=== PATIENT | male | born 1980 | race Caucasian/White ===

== ENCOUNTER 2021-08-10 00:40 | Inpatient (IN) | payer OTHER, SELFPAY ==
[~2021-08-10] VITALS: Ht 190.5 cm; Wt 108.0 kg
[2021-08-10 00:45] VITALS: BP 116/74
--- NOTE | 2021-08-10 00:55 | NUR ---
Dr. Tyson examining patient.
--- NOTE | 2021-08-10 00:56 | NUR ---
41 YO/M BIB SELF W C/O BL LEG AND SCROTUM SWELLING X1 WEEK W BLISTER/ULCER TO SIDE OF L FOOT, L LEG, AND RASH IN SCROTUM AREA FROM SCROTUM RUBBING AGAINST LEG. PT DENIES ANY PAIN BUT REPORTS DISCOMFORT TO LEGS. PT REPORTS ULCER/BLISTERS WERE PRESENT IN MAY WAS SEEN AT [facility] DISCHARGED W ABX BUT FEELS LIKE ULCERS ARE WORSENING. PT DENIES CHEST PAIN, FEVER, CHILLS, N/V/D. PT AMBULATORY W STEADY GAIT W USE OF CANE. PT LAYING IN BED, CONNECTED TO MONITOR W VSS. PT IN GOWN. ERMD AT BEDSIDE ASSESSING PT. PMH:DIABETES ALLERGIES: SULFA
[2021-08-10] MEDS ORDERED: VANCOMYCIN 1,000 MG in DEXTROSE 5% 250 ML IV ONE (01:00)
[2021-08-10] MEDS ORDERED: FUROSEMIDE 40 MG/4 ML VIAL IVP ONE (01:00)
[2021-08-10] MEDS ORDERED: KETOROLAC 30 MG/ML VIAL IVP ONE (01:00)
--- NOTE | 2021-08-10 01:00 | NUR ---
pt unable to provide urine at this tume. pt provided w water.
[2021-08-10] MEDS ORDERED: cefTRIAXone 1,000 MG VIAL ONE (01:07)
--- NOTE | 2021-08-10 01:25 | NUR ---
pt refused pain medication at this time.
--- NOTE | 2021-08-10 01:26 | NUR ---
X-Ray at bedside.
[2021-08-10 01:30] LABS: BASOPHILS # (AUTO) 0.1 K/uL (0.00-0.22); EOSINOPHILS # (AUTO) 0.1 K/uL (0-0.4); EOSINOPHILS % (AUTO) 0.7 % (0.0-4.0); HEMATOCRIT 38.3 % (36-52); HEMOGLOBIN 12.8 g/dL (12.0-18.0); LYMPHOCYTES # (AUTO) 1.5 K/uL (2.0-11.5); LYMPHOCYTES % (AUTO) 14.7 % (20.5-51.1); MEAN CORPUSCULAR HEMOGLOBIN 28 pg (27-31); MEAN CORPUSCULAR HGB CONC 33 g/dL (33-37); MEAN CORPUSCULAR VOLUME 85.1 fL (80-94); MONOCYTES # (AUTO) 0.5 K/uL (0.8-1.0); MONOCYTES % (AUTO) 4.7 % (1.7-9.3); NEUTROPHILS # (AUTO) 8.1 K/uL (1.8-7.7); NEUTROPHILS % (AUTO) 78.9 % (42.2-75.2); PLATELET COUNT (AUTO) 317 K/uL (140-450); RED CELL DISTRIBUTION WIDTH 14.5 % (11.6-13.7); WHITE BLOOD COUNT (AUTO) 10.2 K/uL (4.8-10.8)
--- NOTE | 2021-08-10 01:30 | NUR ---
spfia sample collected from pt nares and sent to lab.
--- NOTE | 2021-08-10 01:33 | NUR ---
Ultrasound at bedside.
--- NOTE | 2021-08-10 01:33 | NUR ---
PT AMBULATED TO BATHROOM W STEADY GAIT. Addendum: 08/10/21 at 0156 by [employer] USE OF CANE TO AMBULATE.
[2021-08-10] MEDS ORDERED: VANCOMYCIN 1,000 MG VIAL ONE (01:43)
[2021-08-10 01:45] LABS: ANION GAP 11.6 (8-16); CARBON DIOXIDE 30.9 mmol/L (21-32); CREATININE 0.8 mg/dL (0.6-1.3); POTASSIUM 3.5 mmol/L (3.5-5.1); TOTAL BILIRUBIN 0.9 mg/dL (0.0-1.0)
[2021-08-10 02:32] LABS: APPEARANCE,URINE CLEAR (CLEAR); BILIRUBIN,URINE NEGATIVE (NEGATIVE); BLOOD, URINE 3+ (NEGATIVE); COLOR,URINE YELLOW (YELLOW); LEUKOCYTE ESTERASE ,URINE NEGATIVE (NEGATIVE); NITRITE, URINE NEGATIVE (NEGATIVE); PH,URINE 6.5 (5.0-9.0); UGLUCOSE NEGATIVE (NEGATIVE)
[2021-08-10] MEDS ORDERED: CLIN300C2 PO (02:33)
[2021-08-10] MEDS ORDERED: METF-1022 PO (02:33)
[2021-08-10] MEDS ORDERED: GLIP10TE PO (02:33)
[2021-08-10 02:38] LABS: RBC,URINE 11-20 (MOD) /HPF (0-5); WBC,URINE 0-5 /HPF (0-5)
--- NOTE | 2021-08-10 02:41 | NUR ---
PT TO CT VIA WHEELCHAIR.
--- NOTE | 2021-08-10 03:49 | NUR ---
PT REPORTS FEELING OK. VSS. ALL NEEDS MET AT THIS TIME.
--- NOTE | 2021-08-10 05:09 | NUR ---
PT AMBULATED TO BATHROOM USE OF CANE, STEADY GAIT.
--- NOTE | 2021-08-10 06:25 | NUR ---
PT APPEARS TO BE RESTING W EYES CLOSED IN SUPINE POSITION. CONNECTED TO MONITOR W VSS. BREATHING EVEN AND UNLABORED. NAD NOTED, WILL CONTINUE TO MONITOR.
--- NOTE | 2021-08-10 07:06 | NUR ---
PT MED SURG HOLD IN ER BED 7.
[2021-08-10] MEDS ORDERED: MAGNESIUM OXIDE 400 MG TAB PO PRN (07:10)
[2021-08-10] MEDS ORDERED: POTASSIUM CHLORIDE 10 MEQ TABER PO PRN (07:10)
[2021-08-10] MEDS ORDERED: MORPHINE SULFATE 4 MG/ML SYR IVP PRN (07:10)
[2021-08-10] MEDS ORDERED: DEXTROSE 50% 50 ML SYR IVP PRN (07:10)
[2021-08-10] MEDS ORDERED: VANCOMYCIN PER PHARMACY MC PRN (07:10)
[2021-08-10] MEDS ORDERED: ONDANSETRON 4 MG/2 ML VIAL IVP PRN (07:10)
[2021-08-10] MEDS ORDERED: HYDROcodone/APAP 5/325 MG 1 TAB TAB PO PRN (07:10)
[2021-08-10] MEDS ORDERED: KCL 20 MEQ/WATER INJ PREMIX 200 ML IV PRN (07:10)
[2021-08-10] MEDS ORDERED: MAG SULF 2000 MG/WATER PREMIX 50 ML IV PRN (07:10)
[2021-08-10] MEDS ORDERED: ACETAMINOPHEN 325 MG TAB PO PRN (07:10)
--- NOTE | 2021-08-10 07:11 | NUR ---
Pt report given to RANJAN PAIGE. Transfer of care at this time.
--- NOTE | 2021-08-10 07:13 | NUR ---
RECEIEVED REPORT FROM RANJAN SOW FOR TRANSFER OF CARE
[2021-08-10] MEDS: BLOOD GLUCOSE MONITORING 1 DEV DEV FS SCH ×4 (08:09→22:00)
--- NOTE | 2021-08-10 08:13 | NUR ---
DR. REINOSO AT PT BEDSIDE FOR FURTHER EVALUATION.
--- NOTE | 2021-08-10 08:15 | NUR ---
DR. REINOSO BEDSIDE EVALUATING PT
--- NOTE | 2021-08-10 08:17 | NUR ---
PT PROVIDED WITH BREAKFAST TRAY BEDSIDE
[2021-08-10] MEDS: INSULIN LISPRO SLIDING SCALE 100 UNITS/ML VIAL SUBQ PRN ×4 (08:28→22:15)
[2021-08-10] MEDS: DOCUSATE SODIUM 100 MG GELCAP PO SCH (09:00)
[2021-08-10] MEDS ORDERED: FUROSEMIDE 40 MG/4 ML VIAL IVP SCH (09:00)
--- NOTE | 2021-08-10 10:06 | NUR ---
PT HAD BM INCONTINENT EPISODE X1, ASSISTED TO AMBULATE TO BATHROOM AT THIS TIME. ERMD AWARE
--- NOTE | 2021-08-10 10:17 | NUR ---
RADIOLOGY AT BEDSIDE TO PERFORM XRAY
--- NOTE | 2021-08-10 10:18 | NUR ---
XRAY AT PATIENT BEDSIDE
--- NOTE | 2021-08-10 10:32 | NUR ---
CULTURES COLLECTED BY MD BEDSIDE FROM L FOOT AND WALKED TO LAB
--- NOTE | 2021-08-10 12:03 | NUR ---
Patient will be admitted to care of DR. BOSCH. Admited to MED-SURG. Will go to room 104A. Belongings list completed. Report to RAJNAN ADAIR.
[2021-08-10] MEDS: PIPERACILLIN/TAZOBACTAM 3.375 GM in DEXTROSE 5% 50 ML IV SCH ×2 (12:30→18:23)
--- NOTE | 2021-08-10 12:30 | NUR ---
RECEIVED REPORT FROM ER NURSE. ADMITTED A 41Y/O MALE, HOMELESS. WITH A CHIEF COMPLAINT OF GROIN PAIN AND BLE SWELLING. ADMITTING DX OF LEFT FOOT OSTEOMYELITIS. HX OF DM AND SMOKING. FULL CODE, NKA, AMBULATORY WITH CANE. PT IS AOX4, ABLE TO MAKE NEEDS KNOWN. NO C/O PAIN. NO SOB ON ROOM AIR. WITH IV ON LAC 18G. ON CCHO DIET/ NPO AFTER MIDNIGHT. BOWEL AND BLADDER CONTINENT. SKIN NOT INTACT, SEE WOUND ASSESSMENT, PHOTO TAKEN. PLAN OF CARE DISCUSSED. Addendum: 08/10/21 at 1748 by Zachary Kasper RN ALLERGIC TO SULFA PER PT
--- NOTE | 2021-08-10 13:00 | NUR ---
[place] PLANING PATIENT IS A 41 YEAR OLD MALE ADMITTED IN THE [facility]/ED ON 08/10/2021 DUE TO WORSENING WOUNDS ON THE FEET. PATIENT HAS MEDICAL HISTORY OF DIABETES AND SUBSTANCE ABUSE. JOANIE MET WITH PATIENT AT BEDSIDE DISCUSS AND GATHER HIS COLLATERAL INFORMATION. PER PATIENT HE IS LIVING IN HIS CAR SINCE MAY 2019 DUE TO HAVING FAMILY DISCORD ABOUT HIS WAY OF LIFE AND SUBSTANCE ABUSE. PER PATIENT HE LACKS ON FAMILY SUPPORT, ONLY TALKS TO HIS MOTHER JACK SZYMANSKI [phone] WHEN HE IS IN NEED OF ASSISTANCE SINCE HIS FATHER IS NOT WILLING TO SPEAK TO HIM DUE TO CONFLICTS WITH FAMILY. PER PATIENT HIS MOTHER IS HIS EMERGENCY CONTACT AND MEDICAL DECISION MAKER. PATIENT REPORTED LIVING IN THE STREETS IN HIS CAR PARKED IN THE STREETS OR SOMETIMES HIS FRIENDS LET HIM PARK AND STAY IN THE CAR DRIVE WAY OF THEIR HOMES. SW PROVIDED PATIENT WITH BASIC NEEDS INFORMATION PACKET AND A LIST OF HOMELESS RESOURCES. PATIENT TOOK SW INFORMATION WELL LOW-COST HOUSING AND WILL BE CALLING TO FIND A MCC IN ONE OF THE PLACES IN THE LIST OF RESOURCES THIS METER CHANGES RECORDS CLERK PROVIDED; SW ALSO PROVIDED RESOURCES FOR SUBSTANCE ABUSE AND FOOD GRANADOS. PER PATIENT HE DO NOT HAVE ANY ADVANCE DIRECTIVES AND WAS NOT INTERESTED ON GETTING INFORMATION PACKET PROVIDED BY JOANIE AT THE TIME OF VISIT. PATIENT REPORTED HAVING A CANE ONLY HIS DME. PATIENT ALSO REPORTED NOT HAVING ANY ISSUES GETTING OR TAKING HIS MEDICATIONS THAT GETS FROM [facility] [place]. PATIENT STATED THAT HE HAS A PRIMARY DOCTOR PAULA REINOSO, WITH WHO HAS MET FOR A FIRST APPOINTMENT ABOUT A MONTH AGO. SW DISCUSS WITH PATIENT ABOUT A FOLLOW UP APPOINTMENT NEEDED WITHIN 7 DAYS AFTER HIS DISCHARGE FROM [facility]. PATIENT AGREED TO ATTEND TO HIS FOLLOW UP APPOINTMENT SCHEDULED FOR 08/17/2021. PER PATIENT HE WILL BE ABLE TO DRIVE HIMSELF TO A MCC AFTER DISCHARGE AND WILL NOT NEED TRANSPORT OR A BUS PASS. SW WILL FOLLOW UP NEEDED. Addendum: 08/16/21 at 1612 by Vikki Richmond JOANIE CALLED PATIENT'S PCP OFFICE AT TO SCHEDULED A FOLLOW UP APPOINTMENT FOR PATIENT AFTER HIS DC FROM [facility]. JOANIE SPOKE TO KORI WHO PROVIDED A FOLLOW UP APPOINTMENT FOR PATIENT ON 08/17/2021 AT 11:00AM AT WITH KATIUSKA SEPULVEDA. JOANIE THANKED KORI AND ENDED THE CALL. JOANIE MET WITH PATIENT TO DISCUSSED HIS DC TODAY AND IMPORTANCE WITH FOLLOW UP CARE, PATIENT AGREED AND STATED THAT HE HAS REACH OUT TO HIS FAMILY AND HAD HIS MOTHER COME TO VISIT HIM YESTERDAY, WELL HIS AUNT SHAGUFTA WITH WHO HE WILL BE GOING TO STAY AT HER HOME IN [place] WHILE HE GETS BETTER. PER PATIENT HE WILL CONTINUE WITH ALL HIS FOLLOW UP APPOINTMENTS. JOANIE PROVIDED HIM WITH HIS APPOINTMENT INFORMATION SCHEDULED FOR 08/16/2021 AT 11:00AM. JOANIE HANDED APPOINTMENT NOTE TO PATIENT WITH ADDRESS, DATE AND TIME OF APPOINTMENT. PATIENT WAS AWAKE AND ALERT AND THANKED THESE METER CHANGES RECORDS CLERK FOR THE INFORMATION.
[2021-08-10] MEDS: VANCOMYCIN 1,000 MG in DEXTROSE 5% 250 ML IV SCH ×2 (13:08→22:46)
[2021-08-10 13:32] VITALS: BP 112/68
--- NOTE | 2021-08-10 15:12 | NUR ---
PT RESTING IN BED. NO C/O PAIN, NO SOB. NEEDS MET
--- NOTE | 2021-08-10 15:20 | NUR ---
PATIENT HAS BEEN SCREENED AND CATEGORIZED MODERATE NUTRITION RISK. PATIENT WILL BE SEEN WITHIN 3-5 DAYS OF ADMISSION. [address]
[2021-08-10 16:00] VITALS: BP 108/70
--- NOTE | 2021-08-10 16:33 | NUR ---
WOUND CONSULT NOT DONE TO BILATERAL LOWER LEGS/FEET. IN HOUSE PODIATRY TEAM HAS SEEN AND TREATED TO PT. WITH WOUNDS AND PLAN FOR FURTHER SURGERY AND INSTRUCTIONS PROVIDED IN PHYSICIAN PROGRESS NOTE.
--- NOTE | 2021-08-10 17:30 | NUR ---
DR FIGUEREDO WITH PODIATRY CALLED, PT''S SURGERY POSTPONED TO SUNDAY AT 0730. PT UPDATED
--- NOTE | 2021-08-10 18:26 | NUR ---
PT IN BED EATING DINNER. TOLERATING WELL. NO C/O PAIN, NO SOB ON ROOM AIR
--- NOTE | 2021-08-10 19:10 | NUR ---
RECD. RESTING IN BED, AWAKE, A/OX4. RESPIRATION EVEN AND UNLABORED. IV OF NS INFUSING AT 10 ML/HR AT THE LEFT AC G18. USES A CANE FOR AMBULATING. BILATERAL LOWER EXTREMITIES WITH REDNESS AND SWELLING. WOUND IN THE LEFT FOOT COVERED WITH DRESSING WITH AMY WRAPPED BANDAGE, DRY AND INTACT. DENIES PAIN 0/10. PATIENT IS ON ANTIBIOTICS.
--- NOTE | 2021-08-10 19:10 | NUR ---
RECD. RESTING IN BED, AWAKE, A/OX4. RESPIRATION EVEN AND UNLABORED. IV OF D5 0.24% NS INFUSING AT 120 ML/HR, RIGHT HAND G22. AMBULATORY TO THE BR. ON CLEAR LIQUID DIET. DENIES PAIN . Addendum: 08/10/21 at 2014 by Nava Gallardo LVN CORRECTION: THIS NOTES IS NOT FOR THIS PATIENT.
[2021-08-10 20:00] VITALS: BP 106/68
--- NOTE | 2021-08-10 20:00 | NUR ---
Patient's Plan of Care was discussed and reviewed with MANAGER SECONDARY: WILLIE LUNDBERG
--- NOTE | 2021-08-10 22:00 | NUR ---
TRANSFERRED FROM BED A TO BED B REQUESTED FOR EASY ACCESS TO THE BR.
--- NOTE | 2021-08-10 22:20 | NUR ---
WENT OUT TO ER PARKING AREA TO GET HIS INSURANCE SALES EXECUTIVE AND BOOKS, ACCOMPANIED BY HARPER, USER EXPERIENCE DESIGNER.
--- NOTE | 2021-08-10 22:40 | NUR ---
BACK TO ROOM ACCOMPANIED BY SECURITY.
[2021-08-11] VITALS: BP 110/68
--- NOTE | 2021-08-11 | NUR ---
SLEEPING COMFORTABLY IN BED, RESPIRATION EVEN AND UNLABORED.
[2021-08-11] MEDS: PIPERACILLIN/TAZOBACTAM 3.375 GM in DEXTROSE 5% 50 ML IV SCH ×4 (00:46→18:00)
--- NOTE | 2021-08-11 04:00 | NUR ---
STILL SLEEPING COMFORTABLY, NO RESPIRATORY DISTRESS NOTED. CALL LIGHT IN REACH.
[2021-08-11] MEDS: VANCOMYCIN 1,000 MG in DEXTROSE 5% 250 ML IV SCH ×3 (05:59→22:24)
--- NOTE | 2021-08-11 06:00 | NUR ---
AWAKE IN BED, VOIDED IN THE URINAL, WILL SENT SPECIMEN TO LAB FOR URINE CULTURE.
[2021-08-11 06:45] LABS: ALBUMIN 2.6 g/dL (3.4-5.0); ANION GAP 11.5 (8-16); CARBON DIOXIDE 29.2 mmol/L (21-32); CREATININE 0.9 mg/dL (0.6-1.3); MAGNESIUM 1.6 mg/dL (1.8-2.4); POTASSIUM 3.7 mmol/L (3.5-5.1); TOTAL BILIRUBIN 0.7 mg/dL (0.0-1.0)
[2021-08-11 06:48] LABS: BASOPHILS # (AUTO) 0.1 K/uL (0.00-0.22); BASOPHILS % (AUTO) 0.8 % (0.0-2.0); EOSINOPHILS # (AUTO) 0.1 K/uL (0-0.4); EOSINOPHILS % (AUTO) 1.3 % (0.0-4.0); HEMATOCRIT 35.9 % (36-52); HEMOGLOBIN 12.2 g/dL (12.0-18.0); LYMPHOCYTES # (AUTO) 1.4 K/uL (2.0-11.5); LYMPHOCYTES % (AUTO) 18.3 % (20.5-51.1); MEAN CORPUSCULAR HEMOGLOBIN 29 pg (27-31); MEAN CORPUSCULAR HGB CONC 34 g/dL (33-37); MEAN CORPUSCULAR VOLUME 84.5 fL (80-94); MONOCYTES # (AUTO) 0.5 K/uL (0.8-1.0); MONOCYTES % (AUTO) 6.3 % (1.7-9.3); NEUTROPHILS # (AUTO) 5.5 K/uL (1.8-7.7); NEUTROPHILS % (AUTO) 73.3 % (42.2-75.2); PLATELET COUNT (AUTO) 298 K/uL (140-450); RED BLOOD CELL COUNT(AUTO) 4.25 MIL/uL (4.20-6.10); WHITE BLOOD COUNT (AUTO) 7.5 K/uL (4.8-10.8)
[2021-08-11] MEDS: BLOOD GLUCOSE MONITORING 1 DEV DEV FS SCH ×4 (06:59→21:25)
[2021-08-11] MEDS: INSULIN LISPRO SLIDING SCALE 100 UNITS/ML VIAL SUBQ PRN ×4 (07:00→21:26)
--- NOTE | 2021-08-11 07:00 | NUR ---
TOLERATED ALL ANTIBIOTICS INFUSED BY RANJAN RAMIREZ DURING THE SHIFT. CONDITION REMAIN STABLE. WILL ENDORSE TO AM SHIFT NURSE FOR CONTINUITY OF CARE.
--- NOTE | 2021-08-11 07:05 | NUR ---
RECEIVED REPORT FROM TRANSPORTATION OFFICER NURSE FOR CONTINUITY OF CARE. PT IN BED AT THIS TIME WATCHING TV. RESPIRATIONS ARE EVEN AND UNLABORED. NO SIGNS OF DISTRESS NOTED. CALL LIGHT WITHIN REACH. ALL SAFETY MEASURES IN PLACE. WILL CONTINUE TO MONITOR.
[2021-08-11] MEDS ORDERED: METOCLOPRAMIDE 10 MG/2 ML INJ VIAL ONE (07:42)
[2021-08-11] MEDS ORDERED: ONDANSETRON 4 MG/2 ML VIAL ONE (07:42)
[2021-08-11] MEDS ORDERED: PROPOFOL 200 MG/20 ML VIAL IV ONE (07:42)
[2021-08-11 08:00] VITALS: BP 134/70
--- NOTE | 2021-08-11 08:00 | NUR ---
DISCUSSED AND REVIEWED PLAN OF CARE WITH LETTY GILLESPIE. WILL CONTINUE TO MONITOR
[2021-08-11] MEDS: DOCUSATE SODIUM 100 MG GELCAP PO SCH (09:04)
[2021-08-11] MEDS: FUROSEMIDE 40 MG/4 ML VIAL IVP SCH ×2 (09:07→22:25)
--- NOTE | 2021-08-11 09:08 | NUR ---
IV MEDICATION ADMINISTERED BY RN. WILL CONTINUE TO MONITOR.
--- NOTE | 2021-08-11 11:10 | NUR ---
PT REQUESTED ASSISTANCE TO REST ROOM. ASSISTED PT. NO COMPLAINTS OF PAIN OR DISCOMFORT. PT TOLERATED WELL. WILL CONTINUE TO MONITOR.
--- NOTE | 2021-08-11 11:35 | NUR ---
IV ANTIBIOTICS ADMINISTERED BY RN. WILL CONTINUE TO MONITOR.
--- NOTE | 2021-08-11 12:43 | NUR ---
RN ADMINISTERED IV ANTIBIOTIC. WILL CONTINUE TO MONITOR.
--- NOTE | 2021-08-11 12:50 | NUR ---
RECEIVED A CALL FROM PHARMACY. PER PHARMACY, HOLD VANCOMYCIN ANTIBIOTIC, DUE TO WAITING FOR VANCO TROUGH. WILL HOLD ANTIBIOTIC. WILL CONTINUE TO MONITOR.
--- NOTE | 2021-08-11 14:43 | NUR ---
RECEIVED CALL FROM PHARMACY, VANCO TROUGH IS 15.0, OK TO CONTINUE WITH IV VANCOMYCIN. WILL INFORM RN.
[2021-08-11 16:00] VITALS: BP 133/71
--- NOTE | 2021-08-11 16:52 | NUR ---
PT BLOOD GLUCOSE WAS 234. COVERED WITH 4 UNITS INSULIN PER SLIDING SCALE. WILL CONTINUE TO MONITOR.
--- NOTE | 2021-08-11 19:01 | NUR ---
IV ANTIBIOTICS ADMINISTERED BY RN. WILL CONTINUE TO MONITOR.
--- NOTE | 2021-08-11 19:10 | NUR ---
ENDORSED PT TO SETTLEMENT CLERK NURSE FOR CONTINUITY OF CARE. PT IS STABLE.
--- NOTE | 2021-08-11 19:11 | NUR ---
RECEIVED BEDSIDE REPORT FROM MORNING SHIFT NURSE FOR CONTINUITY OF CARE. PATIENT IS AWAKE AND STABLE. A&OX4. VERBALLY RESPONSIVE AND ABLE TO COMMUNICATE NEEDS. ON ROOM AIR WITH NO APPARENT S/SX OF ACUTE DISTRESS. RESPIRATIONS EVEN AND UNLABORED. PATIENT HAS AN IV ON LAC 18G PATENT/INTACT TKO. PATIENT IS CONTINENT. DRESSING ON LEFT FOOT IS INTACT AND NO SOILAGE VISIBLE. POC AND WHITE COMMUNICATION BOARD UPDATED. ALL SAFETY MEASURES IN PLACE. BED IN LOW/LOCKED POSITION. CALL LIGHT WITHIN REACH. WILL CONTINUE TO MONITOR.
--- NOTE | 2021-08-11 20:00 | NUR ---
Patient's Plan of Care was discussed and reviewed with GENERAL MANAGER ROAD PRODUCTION: GLADYS FORD
--- NOTE | 2021-08-11 21:05 | NUR ---
ADMINISTERED SCHEDULED MEDICATIONS PER MD ORDER. TOLERATED WELL. NO ADVERSE REACTION NOTED. DENIES PAIN. RESPIRATIONS EVEN AND UNLABORED WITH NO APPARENT S/SX OF ACUTE DISTRESS. WHITE COMMUNICATION BOARD UPDATED. ALL SAFETY MEASURES IN PLACE. CALL LIGHT WITHIN REACH. WILL CONTINUE TO MONITOR.
[2021-08-11 22:00] LABS: URINE TOTAL PROTEIN 2.8 mg/dL (0-12)
--- NOTE | 2021-08-11 23:05 | NUR ---
ANSWERED CALL LIGHT. PROVIDED WARM BLANKET. DENIES PAIN. RESPIRATIONS EVEN AND UNLABORED WITH NO APPARENT S/SX OF ACUTE DISTRESS. EMPTIED URINAL WITH AN OUTPUT OF 500 ML. WHITE COMMUNICATION BOARD UPDATED. ALL SAFETY MEASURES IN PLACE. CALL LIGHT WITHIN REACH. WILL CONTINUE TO MONITOR.
[2021-08-12] MEDS: PIPERACILLIN/TAZOBACTAM 3.375 GM in DEXTROSE 5% 50 ML IV SCH ×4 (00:34→17:56)
--- NOTE | 2021-08-12 01:05 | NUR ---
CHECKED PATIENT. STABLE AND ASLEEP. CHEST IS RISING AND FALLING SYMMETRICALLY. RESPIRATIONS EVEN AND UNLABORED WITH NO APPARENT S/SX OF ACUTE DISTRESS. WHITE COMMUNICATION BOARD UPDATED. ALL SAFETY MEASURES IN PLACE. CALL LIGHT WITHIN REACH. WILL CONTINUE TO MONITOR.
--- NOTE | 2021-08-12 03:05 | NUR ---
ROUNDED ON PATIENT. STABLE AND ASLEEP. CHEST IS RISING AND FALLING SYMMETRICALLY. RESPIRATIONS EVEN AND UNLABORED WITH NO APPARENT S/SX OF ACUTE DISTRESS. WHITE COMMUNICATION BOARD UPDATED. ALL SAFETY MEASURES IN PLACE. CALL LIGHT WITHIN REACH. WILL CONTINUE TO MONITOR.
[2021-08-12 03:51] LABS: BASOPHILS # (AUTO) 0.1 K/uL (0.00-0.22); BASOPHILS % (AUTO) 1.4 % (0.0-2.0); EOSINOPHILS # (AUTO) 0.1 K/uL (0-0.4); EOSINOPHILS % (AUTO) 0.6 % (0.0-4.0); HEMATOCRIT 35.3 % (36-52); LYMPHOCYTES # (AUTO) 1.7 K/uL (2.0-11.5); LYMPHOCYTES % (AUTO) 17.5 % (20.5-51.1); MEAN CORPUSCULAR HEMOGLOBIN 29 pg (27-31); MEAN CORPUSCULAR HGB CONC 34 g/dL (33-37); MEAN CORPUSCULAR VOLUME 84.2 fL (80-94); MONOCYTES # (AUTO) 0.8 K/uL (0.8-1.0); MONOCYTES % (AUTO) 7.7 % (1.7-9.3); NEUTROPHILS # (AUTO) 7.2 K/uL (1.8-7.7); NEUTROPHILS % (AUTO) 72.8 % (42.2-75.2); PLATELET COUNT (AUTO) 288 K/uL (140-450); RED CELL DISTRIBUTION WIDTH 14.7 % (11.6-13.7); WHITE BLOOD COUNT (AUTO) 9.9 K/uL (4.8-10.8)
[2021-08-12 04:00] VITALS: BP 126/66
[2021-08-12 04:23] LABS: ALBUMIN 2.6 g/dL (3.4-5.0); ANION GAP 10.9 (8-16); CARBON DIOXIDE 31.9 mmol/L (21-32); MAGNESIUM 1.5 mg/dL (1.8-2.4); PHOSPHORUS 4.5 mg/dL (2.5-4.9); POTASSIUM 3.8 mmol/L (3.5-5.1); TOTAL BILIRUBIN 0.7 mg/dL (0.0-1.0)
--- NOTE | 2021-08-12 05:05 | NUR ---
EMPTIED PATIENT'S URINAL. PATIENT IS STABLE AND ASLEEP. CHEST IS RISING AND FALLING SYMMETRICALLY. RESPIRATIONS EVEN AND UNLABORED WITH NO APPARENT S/SX OF ACUTE DISTRESS. WHITE COMMUNICATION BOARD UPDATED. ALL SAFETY MEASURES IN PLACE. CALL LIGHT WITHIN REACH. WILL CONTINUE TO MONITOR.
[2021-08-12] MEDS: VANCOMYCIN 1,000 MG in DEXTROSE 5% 250 ML IV SCH ×3 (05:51→21:41)
[2021-08-12] MEDS: BLOOD GLUCOSE MONITORING 1 DEV DEV FS SCH ×4 (06:30→21:48)
[2021-08-12] MEDS: INSULIN LISPRO SLIDING SCALE 100 UNITS/ML VIAL SUBQ PRN ×3 (06:31→16:22)
--- NOTE | 2021-08-12 07:05 | NUR ---
ENDORSED PATIENT TO MORNING SHIFT NURSE FOR CONTINUITY OF CARE. PATIENT IS STABLE.
--- NOTE | 2021-08-12 07:06 | NUR ---
RECEIVED REPORT FROM INDUSTRIAL SAFETY ENGINEER NURSE FOR CONTINUITY OF CARE. PT IN BED AT THIS TIME ON HIS PHONE. RESPIRATIONS ARE EVEN AND UNLABORED. NO SIGNS OF DISTRESS NOTED. NO COMPLAINTS OF PAIN OR DISCOMFORT. CALL LIGHT WITHIN REACH. ALL SAFETY MEASURES IN PLACE. WILL CONTINUE TO MONITOR.
--- NOTE | 2021-08-12 07:18 | NUR ---
OR TEAM ON UNIT TO TEACHER ADULT EDUCATION PT FOR SCHEDULED PROCEDURE. PT IS A&OX4. ON ROOM AIR, RESPIRATIONS ARE EVEN AND UNLABORED. NO SIGNS OF DISTRESS NOTED.
[2021-08-12] MEDS ORDERED: BUPIVACAINE-MPF 0.25% 30 ML VIAL INJ ONE (07:30)
[2021-08-12] MEDS ORDERED: BUPIVACAINE-MPF 0.5% 30 ML VIAL INJ ONE (07:31)
[2021-08-12] MEDS ORDERED: ONDANSETRON 4 MG/2 ML VIAL IVP PRN (07:35)
[2021-08-12] MEDS ORDERED: HYDROmorphone 1 MG/ML AMP IVP PRN (07:35)
[2021-08-12] MEDS ORDERED: fentaNYL citrate 0.05 MG/ML VIAL ONE (07:49)
[2021-08-12] MEDS ORDERED: PROPOFOL 200 MG/20 ML VIAL IV ONE ×2 (07:53)
[2021-08-12] MEDS ORDERED: HYDROmorphone PFS 2 MG/ML SYR ONE (07:55)
[2021-08-12] MEDS ORDERED: ONDANSETRON 4 MG/2 ML VIAL ONE (07:56)
[2021-08-12] MEDS ORDERED: METOCLOPRAMIDE 10 MG/2 ML INJ VIAL ONE (07:56)
[2021-08-12] MEDS ORDERED: KETOROLAC 30 MG/ML VIAL ONE (08:31)
[2021-08-12] MEDS: FUROSEMIDE 40 MG/4 ML VIAL IVP SCH ×2 (09:00→21:47)
[2021-08-12] MEDS: DOCUSATE SODIUM 100 MG GELCAP PO SCH (09:00)
--- NOTE | 2021-08-12 09:59 | NUR ---
PT BACK FROM OR. RESPIRATIONS ARE EVEN AND UNLABORED. NO SIGNS OF DISTRESS NOTED. NO COMPLAINTS OF PAIN OR DISCOMFORT NOTED. PT VS: 107/65, 82, 98.1, 18, 98% ON ROOM AIR. WILL CONTINUE TO MONITOR.
--- NOTE | 2021-08-12 11:50 | NUR ---
PT BLOOD GLUCOSE WAS 193. COVERED WITH 2 UNITS PER SLIDING SCALE. WILL CONTINUE TO MONITOR.
--- NOTE | 2021-08-12 14:23 | NUR ---
DID ROUNDS ON PT. PT IN BED RESTING AT THIS TIME. RESPIRATIONS ARE EVEN AND UNLABORED. NO SIGNS OF DISTRESS NOTED. NO SIGNS OF PAIN OR DISCOMFORT AT THIS TIME. WILL CONTINUE TO MONITOR.
[2021-08-12 16:00] VITALS: BP 109/66
--- NOTE | 2021-08-12 16:22 | NUR ---
PT BLOOD GLUCOSE WAS 210. COVERED WITH 4 UNITS PER SLIDING SCALE. WILL CONTINUE TO MONITOR.
--- NOTE | 2021-08-12 19:20 | NUR ---
ENDORSE PT TO NURSE CASE MANAGEMENT NURSE FOR CONTINUITY OF CARE. PT IS STABLE.
--- NOTE | 2021-08-13 00:10 | NUR ---
RECEIVED REPORT FROM FLY. PT IS AAO4. SITTING UP IN BED REQUESTING TO ELEVATED LEGS ON CHAIR. ASSISTED PT TO CHAIR AND ELEVATED LEGS. PT WITH BLE EDEMA. PT IS ON FLUID RESTRICTION 1500/DAY PT AWARE. S/P L 5 DIGIT PARTIAL AMPUTATION LEG IS WRAPPED NO NOTED DRAINAGE. DRESSING IS C/D/I. POST OP BOOT AT BEDSIDE. CRUTCHES AT BEDSIDE. L FOOT NOTED REDNESS. SCORTORUM SWELLING NOTED. POC REVIEWED WITH PT. CALL LIGHT IS WITHIN REACH. WILL CONTINUE TO MONITOR.
[2021-08-13] MEDS: PIPERACILLIN/TAZOBACTAM 3.375 GM in DEXTROSE 5% 50 ML IV SCH ×4 (00:28→17:51)
--- NOTE | 2021-08-13 00:56 | NUR ---
RIDER STARTED FOR MG LVL 1.5 MED EDUCATION GIVEN. ASSISTED PT BACK TO BED. ALL NEEDS MET.
[2021-08-13 04:00] VITALS: BP 129/84
--- NOTE | 2021-08-13 04:00 | NUR ---
VITAL SIGNS ARE WITHIN NORMAL LIMITS. ALL SAFETY MEASURES ARE IN PLACE. WILL CONTINUE TO MONITOR.
[2021-08-13] MEDS: VANCOMYCIN 1,000 MG in DEXTROSE 5% 250 ML IV SCH ×2 (04:27→13:00)
[2021-08-13] MEDS: INSULIN LISPRO SLIDING SCALE 100 UNITS/ML VIAL SUBQ PRN ×3 (06:52→21:24)
[2021-08-13] MEDS: BLOOD GLUCOSE MONITORING 1 DEV DEV FS SCH ×4 (06:52→20:54)
--- NOTE | 2021-08-13 06:58 | NUR ---
BS 173 HUMALOG GIVEN PER SLIDING SCALE. ALL NEEDS MET. PT IN STABLE CONDITION WILL ENDORSE TO DAY RN.
--- NOTE | 2021-08-13 07:30 | NUR ---
RECEIVED REPORT FROM STONEMASON APPRENTICE NURSE. PT STABLE
[2021-08-13 07:45] LABS: BASOPHILS # (AUTO) 0.1 K/uL (0.00-0.22); BASOPHILS % (AUTO) 0.8 % (0.0-2.0); EOSINOPHILS # (AUTO) 0.1 K/uL (0-0.4); EOSINOPHILS % (AUTO) 0.5 % (0.0-4.0); HEMATOCRIT 39.3 % (36-52); HEMOGLOBIN 13.1 g/dL (12.0-18.0); LYMPHOCYTES # (AUTO) 1.4 K/uL (2.0-11.5); LYMPHOCYTES % (AUTO) 13.2 % (20.5-51.1); MEAN CORPUSCULAR HEMOGLOBIN 29 pg (27-31); MEAN CORPUSCULAR HGB CONC 33 g/dL (33-37); MEAN CORPUSCULAR VOLUME 85.4 fL (80-94); MONOCYTES # (AUTO) 0.9 K/uL (0.8-1.0); NEUTROPHILS # (AUTO) 8.5 K/uL (1.8-7.7); NEUTROPHILS % (AUTO) 77.5 % (42.2-75.2); PLATELET COUNT (AUTO) 313 K/uL (140-450); RED CELL DISTRIBUTION WIDTH 14.4 % (11.6-13.7)
[2021-08-13 07:52] LABS: ANION GAP 14.6 (8-16); CARBON DIOXIDE 28.6 mmol/L (21-32); CREATININE 1.7 mg/dL (0.6-1.3); MAGNESIUM 1.9 mg/dL (1.8-2.4); POTASSIUM 4.2 mmol/L (3.5-5.1); TOTAL BILIRUBIN 1.2 mg/dL (0.0-1.0)
[2021-08-13] MEDS: FUROSEMIDE 40 MG/4 ML VIAL IVP SCH ×2 (08:38→21:25)
[2021-08-13] MEDS: DOCUSATE SODIUM 100 MG GELCAP PO SCH (08:38)
--- NOTE | 2021-08-13 10:13 | NUR ---
WOUND CARE PROVIDED BY PODIATRY. PT CLEARED PER DR. LEVY TO [place]. PT TOLERATED WELL. NO S/S OF DISTRESS. CALL LIGHT IN REACH. ALL SAFETY MEASURES IN PLACE. PHOTO TAKEN AND ADDED TO CHART.
[2021-08-13 12:00] VITALS: BP 127/84
--- NOTE | 2021-08-13 13:20 | NUR ---
BG 150. PT COVERED WITH 4 UN. PT TOLERATED WELL. LUNCH AT BEDSIDE. CALL LIGHT IN REACH. ALL SAFETY MEASURES IN PLACE
--- NOTE | 2021-08-13 13:46 | NUR ---
08/13/21 RD INITIAL ASSESSMENT COMPLETED PLEASE REFER TO NUTRITION ASSESSMENT UNDER CARE ACTIVITY FOR ESTIMATED NUTRITIONAL NEEDS. RD RECOMMENDATIONS: 1. [facility] DIET TOLERATED. 2. DM DIET EDUCATION HANDOUT WAS PROVIDED TO PT. 3. RD WILL F/U 7 DAYS; LOW RISK NAT GLASER, RD
--- NOTE | 2021-08-13 14:42 | NUR ---
PT COMPLAINING OF PAIN 01/01. PT REFUSED NARCOTICS FOR PAIN RELIEF, TYLENOL OFFERED AND EDUCATED ON. WILL MEDICATE PT. PT WILL WALK HALLWAY. NO S/S OF DISTRESS. CALL LIGHT IN REACH. ALL SAFETY MEASURES IN PLACE
[2021-08-13] MEDS: metOLazone 5 MG TAB PO SCH (15:41)
--- NOTE | 2021-08-13 15:44 | NUR ---
PT IV CAME OUT WHEN ATTEMPTING TO AMBULATE. CANULA INTACT. NO S/S OF DISTRESS. CALL LIGHT IN REACH. ALL SAFETY MEASURES IN PLACE. WILL INSERT NEW IV
--- NOTE | 2021-08-13 19:48 | NUR ---
ENDORSED PT TO GENERATING PLANT SUPERINTENDENT NURSE. PT STABLE
[2021-08-13 20:00] VITALS: BP 114/75
[2021-08-14] MEDS: PIPERACILLIN/TAZOBACTAM 3.375 GM in DEXTROSE 5% 50 ML IV SCH ×2 (00:09→05:23)
[2021-08-14 04:00] VITALS: BP 125/81
[2021-08-14] MEDS: BLOOD GLUCOSE MONITORING 1 DEV DEV FS SCH ×4 (06:16→21:10)
[2021-08-14] MEDS: INSULIN LISPRO SLIDING SCALE 100 UNITS/ML VIAL SUBQ PRN ×3 (06:39→21:15)
[2021-08-14 07:32] LABS: BASOPHILS # (AUTO) 0.1 K/uL (0.00-0.22); BASOPHILS % (AUTO) 0.9 % (0.0-2.0); EOSINOPHILS # (AUTO) 0.1 K/uL (0-0.4); EOSINOPHILS % (AUTO) 1.1 % (0.0-4.0); HEMATOCRIT 37.8 % (36-52); HEMOGLOBIN 12.7 g/dL (12.0-18.0); LYMPHOCYTES # (AUTO) 1.3 K/uL (2.0-11.5); LYMPHOCYTES % (AUTO) 14.2 % (20.5-51.1); MEAN CORPUSCULAR HEMOGLOBIN 28 pg (27-31); MEAN CORPUSCULAR HGB CONC 34 g/dL (33-37); MEAN CORPUSCULAR VOLUME 84.3 fL (80-94); MONOCYTES # (AUTO) 0.8 K/uL (0.8-1.0); MONOCYTES % (AUTO) 8.7 % (1.7-9.3); NEUTROPHILS # (AUTO) 6.7 K/uL (1.8-7.7); NEUTROPHILS % (AUTO) 75.1 % (42.2-75.2); PLATELET COUNT (AUTO) 304 K/uL (140-450); RED BLOOD CELL COUNT(AUTO) 4.48 MIL/uL (4.20-6.10); RED CELL DISTRIBUTION WIDTH 14.4 % (11.6-13.7); WHITE BLOOD COUNT (AUTO) 8.9 K/uL (4.8-10.8)
--- NOTE | 2021-08-14 07:47 | NUR ---
RECEIVED REPORT FROM WICK TENDER NURSE. PT STABLE
[2021-08-14 07:57] LABS: ALBUMIN 2.8 g/dL (3.4-5.0); ANION GAP 13.2 (8-16); CARBON DIOXIDE 30.6 mmol/L (21-32); CREATININE 2.3 mg/dL (0.6-1.3); POTASSIUM 3.8 mmol/L (3.5-5.1); TOTAL BILIRUBIN 1.2 mg/dL (0.0-1.0)
[2021-08-14] MEDS: FUROSEMIDE 40 MG/4 ML VIAL IVP SCH ×2 (08:27→17:00)
[2021-08-14] MEDS: metOLazone 5 MG TAB PO SCH (08:27)
[2021-08-14] MEDS: DOCUSATE SODIUM 100 MG GELCAP PO SCH (08:27)
--- NOTE | 2021-08-14 11:54 | NUR ---
PT SPOKE WITH FREIGHT FLOW SALES LEADER. PT UPSET BY NEW DIAGNOSIS OF HEART FAILURE. DISCUSSED DIAGNOSIS AND LIFESTYLE CHANGES ASSOCIATED WITH DIAGNOSIS. PT VERBALIZED UNDERSTANDING. NO S/S OF DISTRESS. CALL LIGHT IN REACH. ALL SAFETY MEASURES IN PLACE
[2021-08-14 12:00] VITALS: BP 121/74
[2021-08-14] MEDS: ISOSORBIDE DINITRATE 10 MG TAB PO SCH ×2 (13:17→17:00)
--- NOTE | 2021-08-14 15:47 | NUR ---
PT WALKED GUZMAN WITH VISITOR. PT NOW IN BED. PT WEIGHT HAS DECREASED FROM 259 TO 245 SINCE YESTERDAY. NO S/S OF DISTRESS. CALL LIGHT IN REACH. ALL SAFETY MEASURES IN PLACE
--- NOTE | 2021-08-14 18:17 | NUR ---
BG 144. DINNER AT BEDSIDE. NO COVERAGE GIVEN. NO S/S OF DISTRESS. FAMILY AT BEDSIDE. CALL LIGHT IN REACH. ALL SAFETY MEASURES IN PLACE
--- NOTE | 2021-08-14 19:36 | NUR ---
ENDORSED PT TO MEDICAL REIMBURSEMENT SPECIALIST NURSE
[2021-08-14 20:00] VITALS: BP 121/82
[2021-08-15 05:08] VITALS: BP 131/92
[2021-08-15] MEDS: BLOOD GLUCOSE MONITORING 1 DEV DEV FS SCH ×4 (06:00→20:11)
[2021-08-15 06:19] LABS: BASOPHILS # (AUTO) 0.1 K/uL (0.00-0.22); BASOPHILS % (AUTO) 0.6 % (0.0-2.0); EOSINOPHILS # (AUTO) 0.1 K/uL (0-0.4); EOSINOPHILS % (AUTO) 1.2 % (0.0-4.0); HEMOGLOBIN 12.1 g/dL (12.0-18.0); LYMPHOCYTES # (AUTO) 1.5 K/uL (2.0-11.5); LYMPHOCYTES % (AUTO) 15.9 % (20.5-51.1); MEAN CORPUSCULAR HEMOGLOBIN 28 pg (27-31); MEAN CORPUSCULAR HGB CONC 34 g/dL (33-37); MEAN CORPUSCULAR VOLUME 84.2 fL (80-94); MONOCYTES # (AUTO) 0.9 K/uL (0.8-1.0); MONOCYTES % (AUTO) 9.4 % (1.7-9.3); NEUTROPHILS # (AUTO) 6.9 K/uL (1.8-7.7); NEUTROPHILS % (AUTO) 72.9 % (42.2-75.2); PLATELET COUNT (AUTO) 299 K/uL (140-450); RED BLOOD CELL COUNT(AUTO) 4.27 MIL/uL (4.20-6.10); RED CELL DISTRIBUTION WIDTH 14.5 % (11.6-13.7); WHITE BLOOD COUNT (AUTO) 9.5 K/uL (4.8-10.8)
[2021-08-15 06:33] LABS: ALBUMIN 2.7 g/dL (3.4-5.0); ANION GAP 11.9 (8-16); CARBON DIOXIDE 31.5 mmol/L (21-32); CREATININE 2.4 mg/dL (0.6-1.3); MAGNESIUM 1.9 mg/dL (1.8-2.4); POTASSIUM 3.4 mmol/L (3.5-5.1); TOTAL BILIRUBIN 0.8 mg/dL (0.0-1.0)
[2021-08-15] MEDS: INSULIN LISPRO SLIDING SCALE 100 UNITS/ML VIAL SUBQ PRN ×4 (06:41→20:13)
[2021-08-15] MEDS: DOCUSATE SODIUM 100 MG GELCAP PO SCH (08:08)
[2021-08-15] MEDS: FUROSEMIDE 40 MG/4 ML VIAL IVP SCH (08:08)
[2021-08-15] MEDS: ISOSORBIDE DINITRATE 10 MG TAB PO SCH ×3 (08:09→16:49)
[2021-08-15] MEDS: metOLazone 5 MG TAB PO SCH (08:12)
[2021-08-15] MEDS ORDERED: METOPROLOL SUCCINATE 50 MG TABER PO SCH ×2 (09:00)
[2021-08-15] MEDS ORDERED: POTASSIUM CHLORIDE 20% 40 MEQ/15 ML UDC GT SCH (11:00)
[2021-08-15 12:20] VITALS: BP 131/92
--- NOTE | 2021-08-15 12:24 | NUR ---
DC PLANNING: PER PODIATRY'S NOTES PT HAS APPOINTMENT ON 08/17 AT 3 PM AT [facility] AT [address] [phone] PT VERBALIZED UNDERSTANDING. PER RETAIL WAREHOUSE SUPERVISOR PT'S PLAN TO GO TO HALFWAY. NOTIFIED DR REINOSO AWAITING FOR DC ORDER. CM TO FOLLOW Addendum: 08/16/21 at 6994 by Rebecca Villalpando RN DC PLANNING: PT WILL BE DC WITH [facility] . RECEIVED AN AUTH# [id number] FROM REGINA AT [facility]. [facility] [phone] ACCEPTED PATIENT AND WILL VISIT PATIENT 08/18/21 AFTER PODIATRY VISIT. CM TO FOLLOW
--- NOTE | 2021-08-15 15:03 | NUR ---
Patient seen and evaluate by Dr Soila Funes and will eval tomorrow and discharge home tomorrow. Patient to follow up with [facility] 1-2 weeks.
[2021-08-15] MEDS: FUROSEMIDE 20 MG/2 ML VIAL IVP SCH (16:49)
--- NOTE | 2021-08-15 19:25 | NUR ---
RECEIVED REPORT FROM MORNING NURSE. PATIENT AWAKE SITTING ON BED. BREATHING EVEN AND UNLABORED. IV SITE INTACT AND SL. BED LOCKED AT LOWEST WITH CALL LIGHT WITHIN REACH. NO COMPLAINT AT THIS TIME. ADVISED TO CALL FOR FURTHER NEEDS. WILL CONTINUE TO MONITOR AND ASSESS.
[2021-08-15 20:00] VITALS: BP 122/87
--- NOTE | 2021-08-16 02:00 | NUR ---
ROUNDING WITH A PURPOSE DONE. PATIENT GIVEN SNACK REQUESTED. ALL DUE MEDS GIVEN. NO FURTHER COMPLAINTS. VS STABLE. WILL CONTINUE TO MONITOR PATIENT.
[2021-08-16 04:00] VITALS: BP 116/72
[2021-08-16] MEDS: BLOOD GLUCOSE MONITORING 1 DEV DEV FS SCH ×3 (06:39→16:30)
[2021-08-16] MEDS: INSULIN LISPRO SLIDING SCALE 100 UNITS/ML VIAL SUBQ PRN (06:40)
--- NOTE | 2021-08-16 07:18 | NUR ---
REPORT RECEIVED FROM PM RN FOR CONTINUITY OF CARE, PT APPEARS ASLEEP, NO ACUTE DISTRESS, VSS, SAFETY MEASURES MAINTAINED, CALL LIGHT WITHIN REACH, WILL CONTINUE TO MONITOR
[2021-08-16 07:56] LABS: ANION GAP 12.9 (8-16); CARBON DIOXIDE 31.6 mmol/L (21-32); CREATININE 2.6 mg/dL (0.6-1.3); POTASSIUM 3.5 mmol/L (3.5-5.1)
[2021-08-16 08:00] VITALS: BP 115/76
[2021-08-16] MEDS: metOLazone 5 MG TAB PO SCH (08:59)
[2021-08-16] MEDS ORDERED: METOPROLOL SUCCINATE 50 MG TABER PO SCH (09:00)
[2021-08-16] MEDS: DOCUSATE SODIUM 100 MG GELCAP PO SCH (09:00)
[2021-08-16] MEDS: ISOSORBIDE DINITRATE 10 MG TAB PO SCH ×2 (09:00→12:15)
[2021-08-16] MEDS: FUROSEMIDE 20 MG/2 ML VIAL IVP SCH (09:00)
[2021-08-16] MEDS ORDERED: hydrALAZINE 10 MG TAB PO SCH (13:00)
--- NOTE | 2021-08-16 13:14 | NUR ---
SPOKE TO DR. NEIL - SHALE PLANER OPERATOR HELPER WHO STATED PT IS MEDICALLY CLEAR FROM HIS STAND POINT
[2021-08-16] MEDS ORDERED: METO5TAB9 PO (13:45)
[2021-08-16] MEDS ORDERED: METO50TE2 PO (13:45)
[2021-08-16] MEDS ORDERED: FURO40TA9 PO (13:45)
[2021-08-16] MEDS ORDERED: ISOS10TA9 PO (13:45)
[2021-08-16] MEDS ORDERED: ACET-1182 PO (13:46)
[2021-08-16 15:42] VITALS: BP 125/72
--- NOTE | 2021-08-16 15:55 | NUR ---
PATIENT STABLE FOR DC. EDUCATION PROVIDED, IV REMOVED, VSS.
[2021-08-17] MEDS ORDERED: FUROSEMIDE 40 MG TAB PO SCH (09:00)
== END 2021-08-16 17:30 | disposition home health service (06) | DRG 710 ==
LOC: MED 00:40 → MMU 07:06 → MTU 12:00
PROVIDERS: ADMIT Internal Medicine; ATTEND Internal Medicine
PROC: 0Y6N0ZF Detachment at Left Foot, Partial 5th Ray, Open Approach (ICD-10-PCS; principal; 2021-08-12 07:30)
DX: A41.9 Sepsis, unspecified organism (principal); I50.21 Acute systolic (congestive) heart failure; N17.9 Acute kidney failure, unspecified; E44.1 Mild protein-calorie malnutrition; I42.8 Other cardiomyopathies; L03.116 Cellulitis of left lower limb; L97.529 Non-pressure chronic ulcer of other part of left foot with unspecified severity; E11.42 Type 2 diabetes mellitus with diabetic polyneuropathy; E66.9 Obesity, unspecified; F17.210 Nicotine dependence, cigarettes, uncomplicated; I07.1 Rheumatic tricuspid insufficiency; E11.621 Type 2 diabetes mellitus with foot ulcer; E11.69 Type 2 diabetes mellitus with other specified complication; Z20.822 Contact with and (suspected) exposure to COVID-19; M86.8X7 Other osteomyelitis, ankle and foot; E11.65 Type 2 diabetes mellitus with hyperglycemia; Z88.2 Allergy status to sulfonamides; Z59.00 Homelessness unspecified; Z79.84 Long term (current) use of oral hypoglycemic drugs; Z79.899 Other long term (current) drug therapy; Z83.3 Family history of diabetes mellitus; Z68.29 Body mass index [BMI] 29.0-29.9, adult
CPT/HCPCS: 36415; 71045; 73630; 80048; 80053; 80202; 81001; 82570; 82948; 83036; 83605; 83690; 83735; 83880; 84100; 85025; 85651; 86140; 87040; 87070; 87075; 87081; 87205; 88305; 88311; 93005; 93925; 93970; 96365; 96367; 96375; 97116; 97530; 99285; J0696; J1170; J1815; J1885; J1940; J2405; J2543; J2704; J2765; J3010; J3370; J3475; J3490; J7030; J7060; Q0092